=== PATIENT | female | born 1980 | race Caucasian/White ===

== ENCOUNTER 2016-12-03 16:58 | Emergency (ER) | payer MEDICAID | END 2016-12-03 20:00 | disposition home or self-care (01) | LOC: D.ER 16:58 | DX: D37.09 Neoplasm of uncertain behavior of other specified sites of the oral cavity (principal); F17.200 Nicotine dependence, unspecified, uncomplicated ==

== ENCOUNTER 2017-10-15 13:52 | Emergency (ER) | payer MEDICAID ==
[2017-10-15 15:28] LABS: APPEARANCE CLEAR (CLEAR); BILIRUBIN NEGATIVE (NEGATIVE); COLOR YELLOW (YELLOW); GLUCOSE NEGATIVE (NEGATIVE); KETONE NEGATIVE (NEGATIVE); NITRITE NEGATIVE (NEGATIVE); PROTEIN NEGATIVE (NEGATIVE); UROBILINOGEN NORMAL (NORMAL)
[2017-10-15 18:34] LABS: BASOPHILS 0.2 % (0-2); EOSINOPHILS 1.7 % (0-7); HEMATOCRIT 39.2 % (36.0-48.0); HEMOGLOBIN 12.9 g/dL (12-16); IMMATURE GRANULOCYTES 0.2 % (0-5); LYMPHOCYTES 31.9 % (15-50); MCH 31.2 pg (26.0-34.0); MCHC 32.9 g/dL (31.0-37.0); MCV 94.9 fL (80.0-100.0); MONOCYTES 5.5 % (2-11); NEUTROPHILS 60.5 % (40-80); PLATELET COUNT 226 10x3/uL (130-400); RBC 4.13 10x6/uL (4.00-5.40); RDW 11.9 % (11.5-14.5); WBC 8.4 10x3/uL (4.8-10.8)
[2017-10-15 18:57] LABS: ALBUMIN 3.7 g/dL (3.4-5.0); ALKALINE PHOSPHATASE 56 U/L (46-116); ALT (SGPT) 23 U/L (10-68); BILIRUBIN - TOTAL 0.73 mg/dL (0.2-1.3); CALC OSMOLALITY 272 mosm/kg (275-300); CALCIUM 8.5 mg/dL (8.5-10.1); CARBON DIOXIDE 28.7 mmol/L (21.0-32.0); CHLORIDE - SERUM 101 mmol/L (98-107); CREATININE - SERUM 0.8 mg/dL (0.6-1.3); GLUCOSE 107 mg/dL (74-106); POTASSIUM - SERUM 3.4 mmol/L (3.5-5.1); PROTEIN - SERUM 7.5 g/dL (6.4-8.2); SODIUM 137 mmol/L (136-145); UREA NITROGEN 10 mg/dL (7-18); eGFR NON AFRICAN AMERICAN 86 mL/min (90-120)
[2017-10-15 19:08] LABS: TROPONIN-I < 0.017 ng/mL (0.000-0.060)
== END 2017-10-15 20:15 | disposition home or self-care (01) ==
LOC: D.ER 13:52
PROVIDERS: Family Medicine; Physician Assistant
DX: R07.89 Other chest pain (principal); R00.1 Bradycardia, unspecified; F17.200 Nicotine dependence, unspecified, uncomplicated; K21.9 Gastro-esophageal reflux disease without esophagitis

== ENCOUNTER 2020-01-13 05:16 | Day surgery (SDC) | payer BC ==
[2020-01-11 11:41] LABS: BASOPHILS 0.4 % (0-2); EOSINOPHILS 2.1 % (0-7); HEMATOCRIT 39.3 % (36.0-48.0); HEMOGLOBIN 12.7 g/dL (12-16); IMMATURE GRANULOCYTES 0.2 % (0-5); LYMPHOCYTES 33.9 % (15-50); MCH 30.5 pg (26.0-34.0); MCHC 32.3 g/dL (31.0-37.0); MCV 94.5 fL (80.0-100.0); MEAN PLATELET VOLUME 10.7 fL (7.4-10.4); MONOCYTES 7.5 % (2-11); NEUTROPHILS 55.9 % (40-80); PLATELET COUNT 252 10x3/uL (130-400); RBC 4.16 10x6/uL (4.00-5.40); RDW 11.9 % (11.5-14.5); WBC 5.2 10x3/uL (4.8-10.8)
[2020-01-11 11:57] LABS: CALCIUM 8.7 mg/dL (8.5-10.1); CARBON DIOXIDE 28.6 mmol/L (21.0-32.0); POTASSIUM - SERUM 4.6 mmol/L (3.5-5.1)
[~2020-01-13] VITALS: Ht 165.1 cm; Wt 115.9 kg
[2020-01-13] VITALS (8 sets, daily range): BP systolic 98–126; BP diastolic 52–70; Ht 165.1 cm; Wt 115.9 kg
--- NOTE | ~2020-01-13 | OP ---
PATIENT NAME: SHEKHAR GONZALEZ MEDICAL RECORD: [id number] :82 LOCATION:[facility] ADMISSION DATE: SURGEON: RADHA FOSTER DO DATE OF OPERATION: 01/13/2020 PREOPERATIVE DIAGNOSES: Abnormal uterine bleeding, suspected adenomyosis. POSTOPERATIVE DIAGNOSES: Abnormal uterine bleeding, suspected adenomyosis. PRIMARY SURGEON: Radha Foster DO E LEARNING MANAGER SURGEON: Dr. Bardales ANESTHESIA: General ET tube. PROCEDURE: Total laparoscopic hysterectomy, bilateral salpingectomy. FINDINGS: Normal appearing external genitalia, normal appearing vaginal vault. Normal appearing cervix. Uterus sounded to 11 cm. Enlarged uterus, no discrete fibroid. Normal appearing fallopian tubes and ovaries. SPECIMENS: Uterus, cervix, bilateral fallopian tubes. ESTIMATED BLOOD LOSS: 50 cc. IV FLUIDS: 1300 cc. URINE OUTPUT: 300 cc clear urine. COMPLICATIONS: None. CONDITION: Stable. DESCRIPTION OF PROCEDURE: The risks, benefits, alternatives and indications of the procedure were discussed with the patient. She voiced understanding of the procedure and signed consent. She was taken to the OR where general anesthesia was administered and found to be adequate. She was placed in the dorsal lithotomy position. She was prepped and draped in the normal sterile fashion. A speculum was placed in the posterior aspect of the vagina and a single tooth tenaculum was used to grasp the anterior lip of the cervix. The uterus was sounded to 11 cm. The cervix was further dilated to accommodate a VCare uterine manipulator and the VCare uterine manipulator was placed and all other instruments were removed from the vagina. Gloves were changed. Attention was then turned to the abdomen. Marcaine was placed in the umbilical fold and a 5-mm incision was made in the umbilical fold with the scalpel. A 5-mm port was placed with the laparoscope for visualization. Pneumoperitoneum was achieved to 15 mmHg. The patient was placed in steep Trendelenburg position. A 10-mm port was placed in the left lower quadrant 2 cm superior and 2 cm medial to the left ASIS under direct laparoscopic visualization. A 5-mm port was placed in the right lower quadrant, 2 cm superior and 2 cm medial to the right ASIS under direct laparoscopic visualization. The bowel was displaced out of the pelvis. Uterine cornua was grasped with an atraumatic grasper and the uterus was gently retracted. The fallopian tube was elevated on the left side and the fallopian tube was removed using the Thunderbeat device. The uteroovarian ligament was coagulated and cut with the Thunderbeat with good hemostasis and the round OPERATIVE REPORT [id number] SHEKHAR GONZALEZ ligament was subsequently coagulated and cut. The vesicouterine peritoneum was opened and the bladder was dissected off the lower uterine segment and upper vagina. Uterine vessels were identified along the uterus and the Thunderbeat was used to coagulate and cut the uterine vessels. The entire procedure was repeated on the right side with the HeadMix uterine manipulator pushing the uterus into the pelvis, the cervicovaginal junction was delineated by the colpotomy ring, which was apparent through the tissue. The vagina was entered with the Thunderbeat and incised circumferentially along the cervicovaginal junction. The uterosacral and cardinal ligament complex and vagina were completely detached from the cervix. Bleeding spots were coagulated. The uterus, cervix, and tubes were removed from the vagina. The vaginal cuff was closed laparoscopically with the V-Loc suture with good hemostasis noted. The patient was taken out of lithotomy position. The pelvis was irrigated with warm sterile water. Good hemostasis was noted in the operative field at low insufflation pressure. All instruments were removed from the abdomen and the pneumoperitoneum was released. The skin incisions were closed with 3-0 Monocryl and Dermabond covering. All needle, lap, sponge, and instrument counts were correct times 2. The patient tolerated the procedure well and she was awakened and taken to the recovery room in stable condition. TRANSINT:[id number] Voice Confirmation ID: [id number] DOCUMENT ID: [id number] RADHA FOSTER DO CC: [id number] DICTATION DATE: 01/19/20918 SILVERING APPLICATOR: 01/19/20958 [facility] 01/13/20 [facility] [address] [id number]
[~2020-01-13 05:16] MED LIST: TRAZODONE HCL150 MG PO
[2020-01-13 05:58] LABS: HCG URINE NEGATIVE (NEGATIVE)
--- NOTE | 2020-01-13 09:30 | NUR ---
DR FOSTER ON UNIT. ORDER RECEIVED TO DC HOME IF PT VOIDS, TOLERATES LIQUIDS AND PAIN CONTROLLED.
--- NOTE | 2020-01-13 09:30 | NUR ---
DR POPE ON UNIT. ORDER RECEIVED TO DC HOME IF PT VOIDS, TOLERATES LIQUIDS AND PAIN CONTROLLED.
--- NOTE | 2020-01-13 10:06 | NUR ---
RECEIVED PT FROM VIA BED TO ROOM 1273. BED LOCKED AND PLACED IN LOW POSITION. PT AWAKE. VSS. HRRR WITHOUT AUDIBLE MURMUR. BBS CLEAR. HYPOACTIVE BS NOTED. ABDOMEN SOFT/NON-DISTENDED. 3 LAP INCISIONS WITH DERMABOND NOTED. NO REDNESS, SWELLING OR DRAINAGE NOTED. ICE PACK TO INCISION. SCANT AMT OF SEROSANGUINOUS VAGINAL DISCHARGE NOTED. PERIPAD IN PLACE TO MONITOR. NEG HOMANS' SIGN. PPP. MILD NON-PITTING EDEMA NOTED TO BLE. SCDS ON BLE. PUMP ON. ROSA TO GRAVITY DRAINING DARK, YELLOW URINE. PIV SITE CLEAR TO LEFT HAND. 20 GAUGE CATHELON NOTED. LR INFUSING AT 125 ML/HR. PT STATES PAIN OF "1" ON 0-10 PAIN SCALE. PT PROVIDED ICE WATER, ICE CHIPS. INSTRUCTED ON INCENTIVE SPIROMETER AND PULLS 1000. SURGICAL SPLINT PILLOW PROVIDED. PT ORIENTED TO ROOM, BED, AND CALL LIGHT. SR UP X 2. CALL LIGHT IN REACH.
--- NOTE | 2020-01-13 10:30 | NUR ---
ROSA DC'D WITH 150 ML OF DARK, YELLOW URINE NOTED IN BAG. PT SIVA WELL. INSTRUCTED TO NOTIFY NURSE OF NEED TO VOID FOR ASSISTANCE OUT OF BED. VERBALIZES UNDERSTANDING.
--- NOTE | 2020-01-13 11:15 | NUR ---
PT C/O INCISIONAL PAIN/ACHING OF "5" ON 0-10 PAIN SCALE. PERCOCET 10/325 GIVEN PO ORDERED. PT INSTRUCTED ON MED. VERBALIZES UNDERSTANDING. JACOB VICTOR PROVIDED TO PT.
--- NOTE | 2020-01-13 11:48 | NUR ---
PT OOB AND AMB TO BR. VOIDS 300 ML OF BLOOD-TINGED URINE. PERICARE DONE PER PT. PANTIES AND PAD ON. MOD AMT OF SEROSANGUINOUS DRAINAGE NOTED ON PREVIOUS PERIPAD. PT AMB BACK TO BED. SIVA ACTIVITY WELL.
--- NOTE | 2020-01-13 12:30 | NUR ---
PT CONSUMES 30% OF REG DIET. SIVA WELL. DENIES NAUSEA. STATES "IT WASN'T THAT GOOD". PT CONSUMED 2 PITCHERS OF WATER SINCE ARRIVAL TO UNIT.
--- NOTE | 2020-01-13 13:00 | NUR ---
PT OOB AND AMB TO BR. VOIDS 200 ML OF CLEAR, YELLOW URINE. PERIPAD CHANGED WITH SCANT AMT OF SEROSANGUINOUS DISCHARGE NOTED. PERICARE DONE. PT AMB BACK TO BED. SIVA ACTIVITY WELL.
--- NOTE | 2020-01-13 14:29 | NUR ---
PIV DC'D WITH CATHELON INTACT. PRESSURE BANDAGE TO SITE. PT SIVA WELL.
[2020-01-13] MEDS ORDERED: PERCOCET 5-3251 TAB PO (14:40)
--- NOTE | 2020-01-13 15:10 | NUR ---
PERCOCET 10/325 GIVEN PO AND TORADOL 30 MG GIVEN IM TO RIGHT HIP ORDERED. PT STATES PAIN OF "2-3" ON 0-10 PAIN SCALE. SIVA WELL.
--- NOTE | 2020-01-13 15:20 | NUR ---
DISCHARGE INSTRUCTIONS GIVEN TO PT. PT VERBALIZES UNDERSTANDING OF ALL INSTRUCTIONS. COPIES GIVEN TO PT. PT GIVEN RX FOR PERCOCET. PT UP TO DRESS.
--- NOTE | 2020-01-13 15:34 | NUR ---
DR FOSTER CALLS. NOTIFIED PT READY FOR DISCHARGE AND PT MOTHER HERE TO TAKE PT HOME. NOTIFIED PT HAS VOIDED, TOLERATED REGULAR DIET AND PAIN CONTROLLED BY PERCOCET. NO NEW ORDERS RECEIVED. FOLLOW UP APPOINTMENT ALREADY SCHEDULED.
--- NOTE | 2020-01-13 15:45 | NUR ---
PT READY FOR DISCHARGE. DISCHARGED IN STABLE CONDITION VIA WHEELCHAIR TO PRIVATE VEHICLE. PT SIVA WELL.
== END 2020-01-13 15:45 | disposition home or self-care (01) ==
LOC: D.OPS 05:16 → D.PAN 07:00 → D.LD 09:48 → D.OPS 15:45
PROVIDERS: ATTEND Student in an Organized Health Care Education/Training Program
DX: N93.9 Abnormal uterine and vaginal bleeding, unspecified (principal); D25.9 Leiomyoma of uterus, unspecified